=== PATIENT | female | born 1960 | race Caucasian/White ===

== ENCOUNTER 2023-04-16 20:33 | Emergency (ER) | payer OTHER, SELFPAY ==
[2023-04-16 20:38] VITALS: BP 182/94; PULSE 109; RESP 20; TEMP 36.9; O2SAT 97; BMI 21.8
--- NOTE | 2023-04-16 20:48 | PC.NURSE ---
bilat pupils PERRLA
--- NOTE | 2023-04-16 20:57 | CT_ITS ---
The [address] [address] Patient Name: MAGALY MARQUEZ MRN: [id number] date: 1960 Sex: F Assigned Patient Location: ER Current Patient Location: ER Accession/Order Number: [id number] Exam Date: 04/16/2023 21:33 Report Date: 04/16/2023 22:21 At the request of: CAPRI REEVES Procedure: CT cervical spine wo con EXAM: CT cervical spine wo con HISTORY: Slip and fall COMPARISON: None. TECHNIQUE: Axial CT imaging is performed. Sagittal and coronal reformatted/reconstructed sequences were additionally performed. FINDINGS: IMPRESSION: Maintenance of the normal cervical lordosis. Vertebral body heights and alignments exhibit no fracture or listhesis. Intervertebral disc space narrowing, endplate and uncovertebral and facet arthrosis most pronounced C6-C7. Degenerative changes of the dens. The dens and lateral masses of C1 are otherwise symmetric. No prevertebral soft tissue edema. The right thyroid gland measures 51 x 34.6 x 20 mm with multifocal low density foci and calcifications. The visualized osseous skull base, mastoid air cells, airway, superficial soft tissues, thoracic inlet and pulmonary apices exhibit no gross abnormality. Electronically authenticated by: KELBY MONTANEZ Date: 04/16/2023 22:21
--- NOTE | 2023-04-16 20:57 | CT_ITS ---
The [address] [address] Patient Name: MAGALY MARQUEZ MRN: [id number] date: 1960 Sex: F Assigned Patient Location: ER Current Patient Location: Accession/Order Number: [id number] Exam Date: 04/16/2023 21:33 Report Date: 04/16/2023 22:25 At the request of: CAPRI REEVES Procedure: CT facial bones wo con EXAMINATION: CT head/brain wo con, CT facial bones wo con TECHNIQUE: Axial CT images were obtained through the brain. Sagittal and coronal reformatted images were also obtained. Axial CT images through the facial bones along with sagittal and coronal reformatted images. Dose reduction techniques were achieved by using automated exposure control and/or adjustment of mA and/or kV according to patient size and/or use of iterative reconstruction technique. HISTORY: trauma COMPARISON: None. FINDINGS: Intracranial Bleed: No evidence for acute intracranial bleed. Intracranial Mass: No evidence for mass lesion. No mass effect or midline shift. Extra-axial spaces: The ventricular system is normal caliber. White/Jones Matter: No acute cortical infarct. No significant white matter abnormality. Skull/Scalp: No evidence for skull fracture or lesion. 11 mm high attenuation structure filling the right external auditory canal. Facial bones/Orbits and sinuses: No facial bone fracture. The orbits appear unremarkable. Subcutaneous soft tissue contusion over the left side of the face. The visualized paranasal sinuses are clear. CT/CT facial bones wo con IMPRESSION: No acute facial bone fracture. No acute intracranial pathology. High attenuation material filling the right external auditory canal. Correlate clinically. Electronically authenticated by: FRANCISCO SMITH Date: 04/16/2023 22:25
--- NOTE | 2023-04-16 20:57 | XR_ITS ---
[place] [id number] Patient Name: MAGALY MARQUEZ MRN: [id number] date: 1960 Sex: F Assigned Patient Location: ER Current Patient Location: ER Accession/Order Number: [id number] Exam Date: 04/16/2023 21:33 Report Date: 04/16/2023 22:19 At the request of: CAPRI REEVES Procedure: XR hand RT min 3V EXAM: XR hand RT min 3V TECHNIQUE: AP, lateral and oblique views right hand HISTORY: trauma COMPARISON: None. FINDINGS: Linear lucency through the volar plate of the base of the third middle phalanx and base of the fourth middle phalanx questioned for nondisplaced fractures. Mild degenerative changes of the interphalangeal joints. Soft tissue swelling of the third and fourth digits XR/XR hand RT min 3V IMPRESSION: Question nondisplaced fractures of the volar plate of the bases of the third and fourth middle phalanges Electronically authenticated by: FRANCISCO SMITH Date: 04/16/2023 22:19
--- NOTE | 2023-04-16 20:57 | XR_ITS ---
The [address] [address] Patient Name: MAGALY MARQUEZ MRN: [id number] date: 1960 Sex: F Assigned Patient Location: ER Current Patient Location: ER Accession/Order Number: [id number] Exam Date: 04/16/2023 21:33 Report Date: 04/16/2023 22:24 At the request of: CAPRI REEVES Procedure: XR knee RT 3V EXAMINATION: XR knee RT 3V REASON FOR EXAM: trauma 3 views. FINDINGS: There is a tricompartmental osteoarthritis. Posterior joint bodies suggested. No joint effusion or fracture. No varus or valgus angulation. XR/XR knee RT 3V IMPRESSION: Mild tricompartmental osteoarthritis. No joint effusion or fracture. Electronically authenticated by: MARGRET JAIN Date: 04/16/2023 22:24
--- NOTE | 2023-04-16 20:57 | CT_ITS ---
[address] [address] Patient Name: MAGALY MARQUEZ MRN: [id number] date: 1960 Sex: F Assigned Patient Location: ER Current Patient Location: ER Accession/Order Number: [id number] Exam Date: 04/16/2023 21:33 Report Date: 04/16/2023 22:25 At the request of: CAPRI REEVES Procedure: CT head/brain wo con EXAMINATION: CT head/brain wo con, CT facial bones wo con TECHNIQUE: Axial CT images were obtained through the brain. Sagittal and coronal reformatted images were also obtained. Axial CT images through the facial bones along with sagittal and coronal reformatted images. Dose reduction techniques were achieved by using automated exposure control and/or adjustment of mA and/or kV according to patient size and/or use of iterative reconstruction technique. HISTORY: trauma COMPARISON: None. FINDINGS: Intracranial Bleed: No evidence for acute intracranial bleed. Intracranial Mass: No evidence for mass lesion. No mass effect or midline shift. Extra-axial spaces: The ventricular system is normal caliber. White/Jones Matter: No acute cortical infarct. No significant white matter abnormality. Skull/Scalp: No evidence for skull fracture or lesion. 11 mm high attenuation structure filling the right external auditory canal. Facial bones/Orbits and sinuses: No facial bone fracture. The orbits appear unremarkable. Subcutaneous soft tissue contusion over the left side of the face. The visualized paranasal sinuses are clear. CT/CT head/brain wo con IMPRESSION: No acute facial bone fracture. No acute intracranial pathology. High attenuation material filling the right external auditory canal. Correlate clinically. Electronically authenticated by: FRANCISCO SMITH Date: 04/16/2023 22:25
--- NOTE | 2023-04-16 20:59 | ED_ITS ---
HPI - Head Injury General Chief complaint: Head Injury Stated complaint: HEAD INJURY Time Seen by Provider: 04/16/23 20:54 Source: patient Mode of arrival: walk-in History of Present Illness HPI Narrative: patient slipped wet floor in her kitchen and fell striking her left face. sustained laceration right bahai. also injured 2 middle fingers right hand and her right knee. No LOC, nausea or vomiting. No weakness of her extremities. Not able to remember her last tetanus MD Complaint: Reports head injury Related Data Allergies Allergy/AdvReac Type Severity Reaction Status Date / Time acetaminophen [From Percocet] Allergy Severe Verified 04/16/23 20:38 oxycodone [From Percocet] Allergy Severe Verified 04/16/23 20:38 Penicillins Allergy Severe Verified 04/16/23 20:38 Review of Systems ROS Status of ROS 10 or more systems reviewed and unremarkable except as noted in history and below Exam Constitutional Vital Signs, click to edit/add: Last Vital Signs Temp 98.4 F 04/16/23 20:38 Pulse 102 H 04/16/23 21:32 Resp 20 04/16/23 20:38 BP 179/98 H 04/16/23 21:32 Pulse Ox 97 04/16/23 21:32 O2 Del Method Room Air 04/16/23 20:50 Common normals: no apparent distress, average body habitus, oriented x3, no limitations, healthy appearing, alert and well nourished [facility] Face and sinus images: 1. laceration 2. facial contusion Eye Common normals: PERRL, EOMs intact bilaterally and conjunctivae normal Respiratory Common normals: normal respiratory effort, no retractions and no use of accessory muscles Cardio Common normals: regular rate, regular rhythm, S1 normal heart sound and S2 normal heart sound GI Common normals: Normal to inspection, nondistended, normoactive bowel sounds present, soft to palpation and non-tender Extremity Other: mild swelling right middle 2 fingers. No deformity abrasion-mild- right knee. No swelling. FROM Neuro Common normals: oriented x3, CN's II-XII intact bilaterally, moves all extremities, no focal motor deficits and no sensory deficits noted Psych Appearance: grossly normal Course Reevaluation(s) Reevaluation #1: volar splint with fiber glass material placed right hand for 3rd and 4th finger fractures Vital Signs Vital signs: Vital Signs Temperature 98.4 F 04/16/23 20:38 Pulse Rate 109 H 04/16/23 20:38 Respiratory Rate 20 04/16/23 20:38 Blood Pressure 182/94 H 04/16/23 20:38 Pulse Oximetry 97 04/16/23 20:38 Oxygen Delivery Method Room Air 04/16/23 20:38 Temperature 98.4 F 04/16/23 20:38 Pulse Rate 102 H 04/16/23 21:32 Respiratory Rate 20 04/16/23 20:38 Blood Pressure 179/98 H 04/16/23 21:32 Pulse Oximetry 97 04/16/23 21:32 Oxygen Delivery Method Room Air 04/16/23 20:50 MDM - Head Injury MDM Narrative Medical decision making narrative: patient fell at home striking her left face. has contusion left cheek and lac temporal side left eye. lac repaired as above. xrays also demonstrate fracture right 3rd and 4th fingers for which volar splint was placed. Patient did receive a tetanus shot and is referred to orthopedics Discharge Plan Discharge Chief Complaint: Head Injury Clinical Impression: Closed head injury, Facial laceration, Hand fracture, right Patient Disposition: Home, Self-Care Instructions: Laceration (ED), Hand Fracture (ED), Head Injury (ED) Additional Instructions: follow up with your orthopedic surgeon this week to recheck your hand have wound rechecked in 2-3 days and stitches removed in 5-6 days Stand Alone Forms: Portal Instructions Referrals: Physician,Non-Staff, MD [Primary Care Provider] - 1 week Procedures ED Procedure Instructions Procedures Procedures: left facial lac. 4.5cm SQ lac. 1% lido with epi. site cleaned with betadine and rinsed with saline. closed with # 6 6.0 nylon stitches
[2023-04-16] MEDS: ADACEL DIPH,PERTUSS(ACELL),TET VAC/PF 0.5 ML ADULT SYRINGE IM (21:13)
[2023-04-16 21:32] VITALS: BP 179/98; PULSE 102; O2SAT 97
[2023-04-16] MEDS: LIDOCAINE HCL 1%-EPINEPHRINE 1:100,000 20 ML MDV INJ (23:19)
[2023-04-16] MEDS: TRAMADOL HCL 50 MG TABLET 100 MG PO (23:43)
== END 2023-04-16 23:53 | disposition home or self-care (01) ==
PROVIDERS: Emergency Provider Internal Medicine
DX: S01.81XA Laceration without foreign body of other part of head, initial encounter (principal); S62.652A Nondisplaced fracture of middle phalanx of right middle finger, initial encounter for closed fracture; S62.654A Nondisplaced fracture of middle phalanx of right ring finger, initial encounter for closed fracture; S09.8XXA Other specified injuries of head, initial encounter; Z23 Encounter for immunization; W01.10XA Fall on same level from slipping, tripping and stumbling with subsequent striking against unspecified object, initial encounter
CPT/HCPCS: 12013; 29125; 70450; 70486; 72125; 73130; 73562; 90471; 90715; 99284

== ENCOUNTER 2023-11-24 01:48 | Emergency (ER) | payer OTHER, SELFPAY ==
--- NOTE | 2023-11-24 02:07 | ED_ITS ---
HPI HPI - General Adult General Chief complaint: Cardiac Arrest/CPR Stated complaint: Cardiac arrest Time Seen by Provider: 11/24/23 01:52 History of Present Illness HPI narrative: 63-year-old female presented to the emergency department in cardiac arrest. All of the history is obtained from the paramedics and the patient's daughter with whom the patient lives. The patient has a history of stage IV esophageal cancer and was getting chemotherapy. This cancer was initially diagnosed in July of this year. She was found unresponsive by her daughter. The patient had gone to bed about 8 PM and daughter found her unresponsive just after 1 AM. She was no víctor to be cool to touch by the paramedics. They placed an esophageal airway and gave epinephrine and continued CPR en route. Upon arrival there was no change in her medical state, no pulse and she was unresponsive. The patient had just recently been tired but otherwise had not had any physical complaints. Related Data Allergies Allergy/AdvReac Type Severity Reaction Status Date / Time acetaminophen [From Percocet] Allergy Severe Verified 04/16/23 20:38 oxycodone [From Percocet] Allergy Severe Verified 04/16/23 20:38 Penicillins Allergy Severe Verified 04/16/23 20:38 Opioid HPI Opioid Management Most Recent Opioid Data: No Data to Display Review of Systems ROS Narrative Not obtainable Exam Narrative Exam Narrative: Nurses note and vital signs reviewed and patient is not hypoxic. General: The patient is undergoing CPR upon arrival. She is unresponsive. Skin: Skin is cool to touch and she is pale. She has a few scattered bruises, none fresh. Head: Normocephalic, atraumatic Eye: Pupils are fixed and dilated Ears, Nose, Mouth, and Throat: Airway in place. Cardiovascular: Pulseless, no spontaneous heart tones Respiratory: No spontaneous respirations. Breath sounds are equal bilaterally with bagging. GI: Feeding tube in place, nondistended Musculoskeletal: No deformity to her extremities Neurological: Unresponsive Psychiatric: Cannot be tested Medical Decision Making MDM Narrative Medical decision making narrative: CPR was in progress upon arrival. This was continued after arrival and she was given another dose of IV epinephrine here. There was no change in her medical status and she was pronounced at 1:50 AM by me. The patient's daughter arrived at the emergency department and she was informed. I have spoken to Dr. Galvez, her PCP, and he reports that he will sign the certificate. Differential Diagnosis Differential Diagnosis: Esophageal cancer, stroke, myocardial infarction, pulmonary embolism Discharge Plan Discharge Patient Disposition: Date/Time: 11/24/23 01:50 Probable Cause of Probable Cause of : Cancer of thoracic esophagus
== END 2023-11-24 06:08 | disposition expired ==
LOC: ER 01:55
PROVIDERS: Emergency Provider Emergency Medicine; PCP Nurse Practitioner Family
DX: I46.9 Cardiac arrest, cause unspecified (principal); C15.9 Malignant neoplasm of esophagus, unspecified; Z79.899 Other long term (current) drug therapy
CPT/HCPCS: 92950; 99285